=== PATIENT | male | born 1970 | race Caucasian/White ===

== ENCOUNTER 2017-09-22 10:43 | Emergency (ER) | payer OTHER ==
[~2017-09-22] VITALS: Ht 177.8 cm; Wt 86.2 kg
[2017-09-22] MEDS ORDERED: CYCL10 PO (10:59)
[2017-09-22] MEDS ORDERED: Metformin HCl1000 MG PO (10:59)
[2017-09-22] MEDS ORDERED: IBUP800 PO (10:59)
[2017-09-22] MEDS ORDERED: METH40 PO (10:59)
[2017-09-22] MEDS ORDERED: LITH300C PO (11:00)
[2017-09-22 11:32] LABS: Source, Urine Clean Catch
[2017-09-22 11:37] LABS: Bilirubin, Urine Neg (Neg); Blood, Urine 2+ (Neg); Glucose Qualitative, Urine 4+ (Neg); Ketones, Urine 1+ (Neg); Leukocyte Esterase, Urine 1+ (Neg); Nitrite, Urine Pos (Neg); Protein, Urine 2+ (Neg); Urobilinogen, Urine NORM (Normal)
[2017-09-22 11:44] LABS: BASOPHILS ABSOLUTE AUTO 0.02 K/mm3 (0.00-0.23); BASOPHILS PERCENT AUTO 0 % (0-2); EOSINOPHILS ABSOLUTE AUTO 0.13 K/mm3 (0.00-0.68); EOSINOPHILS PERCENT AUTO 1 % (0-6); Hematocrit 40.6 % (37.0-53.0); Hemoglobin 13.8 g/dL (13.5-17.5); IMMATURE GRAN ABSOLUTE AUTO 0.07 K/mm3 (0.00-0.10); IMMATURE GRAN PERCENT AUTO 1 % (0-1); LYMPHOCYTES ABSOLUTE AUTO 1.82 K/mm3 (0.84-5.20); LYMPHOCYTES PERCENT AUTO 16 % (21-46); MONOCYTES ABSOLUTE AUTO 0.52 K/mm3 (0.16-1.47); MONOCYTES PERCENT AUTO 5 % (4-13); Mean Corpuscular HGB 29.9 pg (26.0-34.0); Mean Corpuscular Volume 88 fL (80-100); Mean Platelet Volume 8.8 fL (9.1-12.4); NEUTROPHILS ABSOLUTE AUTO 9.01 K/mm3 (1.96-9.15); NEUTROPHILS PERCENT AUTO 78 % (41-73); Platelet Count 347 K/mm3 (150-400); RDW Coefficient Variation 12.9 % (11.7-14.2); RDW Standard Deviation 41.1 fL (35.1-46.3); Red Blood Cell Count 4.62 M/mm3 (4.30-5.90); White Blood Cell Count 11.57 K/mm3 (4.00-11.30)
[2017-09-22 12:02] LABS: U Amphetamine Screen Not Detected; U Barbituate Screen Not Detected; U Benzodiazapine Screen DETECTED; U Buprenorphine Screen Not Detected; U Cannabinoids Screen Not Detected; U Cocaine Screen Not Detected; U Methadone Screen DETECTED; U Methamphetamine Screen Not Detected; U Opiates Screen DETECTED; U Oxycodone Screen Not Detected; U Phencyclidine Screen Not Detected; U Propoxyphene Screen Not Detected
[2017-09-22 12:12] LABS: Alanine Aminotransfer (ALT/SGP 52 U/L (12-78); Albumin, Blood 3.8 g/dL (3.4-5.0); Alk Phos 104 U/L (50-136); Anion Gap 7 mmol/L (6-16); Aspartate Aminotrans (AST/SGOT 40 U/L (12-37); Bilirubin, Total 0.3 mg/dL (0.1-1.0); Blood Urea Nitrogen 18 mg/dL (8-24); CO2, Blood 27 mmol/L (21-32); Calcium, Blood 8.8 mg/dL (8.5-10.1); Chloride, Blood 99 mmol/L (98-108); Creatinine, Blood 0.82 mg/dL (0.60-1.20); Ethanol (Alcohol), Blood, Med <3 mg/dL; Free Thyroxine 1.21 ng/dL (0.70-1.60); Globulin, Blood 3.7 g/dL (2.2-4.0); Glomerular Filtration Rate >60 (60-); Glucose, Blood 298 mg/dL (70-99); Potassium, Blood 3.7 mmol/L (3.5-5.5); Salicylate 5.4 mg/dL (2.8-20.0); Sodium, Blood 133 mmol/L (136-145); Total Protein, Blood 7.5 g/dL (6.4-8.2)
[2017-09-22 12:13] LABS: Appearance, Urine Clear (Clear); Color, Urine Yellow (P-Yellow)
[2017-09-22 12:14] LABS: Bacteria Mod /hpf; Mucus Light (0-Heavy); Red Blood Cells, Urine 0-2 /hpf (0-2); Squamous Epithelial Cells Few /hpf (Few)
[2017-09-22 12:16] LABS: Thyroid Stimulating Hormone 0.756 uIU/mL (0.360-4.800)
[2017-09-22 12:20] LABS: Acetaminophen, Random <2.0 ug/mL (10.0-30.0)
[2017-09-22 12:25] LABS: Lithium <0.20 mmol/L (0.60-1.20)
[2017-09-22] MEDS ORDERED: HYDR1TAB94 PO (12:37)
[2017-09-22] MEDS ORDERED: Cymbalta30 MG PO (13:14)
== END 2017-09-22 14:18 | disposition home or self-care (01) ==
LOC: ER 10:43
PROVIDERS: Emergency Medicine
DX: F32.9 Major depressive disorder, single episode, unspecified (principal); Z88.8 Allergy status to other drugs, medicaments and biological substances; Z79.899 Other long term (current) drug therapy; Z79.84 Long term (current) use of oral hypoglycemic drugs; E11.9 Type 2 diabetes mellitus without complications; F17.210 Nicotine dependence, cigarettes, uncomplicated
CPT/HCPCS: 80053; 80178; 81001; 84439; 84443; 85025; 87086; 99284; G0480; Q3014